=== PATIENT | female | born 2005 | race Caucasian/White ===

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

== ENCOUNTER 2024-03-03 17:53 | Emergency (ER) | payer SELFPAY ==
[2024-03-03 17:59] VITALS: BP 122/84; PULSE 104; RESP 18; TEMP 36.7; O2SAT 100
--- NOTE | 2024-03-03 18:06 | ED_ITS ---
HPI - Female Genitourinary General Chief complaint: Abdominal Pain Stated complaint: rt. sided abdominal pain Time Seen by Provider: 03/03/24 18:00 Source: patient Mode of arrival: ambulatory Limitations: no limitations History of Present Illness HPI Narrative: 19-year-old female presents to the ED with a 5 day history of -- dysuria. No hematuria. -- right-sided abdominal pain. No radiation of the pain. No nausea/ vomiting. No exacerbating or relieving factors. Pain is intermittent. No fever or chills MD elicited complaint: dysuria and UTI Onset (ago): day(s) ( 5 days) Location of symptoms: flank Severity: moderate Female Urogenital Radiation: Non-Radiating Quality of pain: aching Consistency: intermittent Vaginal discharge: none Vaginal bleeding: none Urinary symptoms: Dysuria Exacerbating factors: none Relieving factors: none Associated symptoms: denies other symptoms Treatment prior to arrival: none Date of Last Menstrual Period: 02/11/24 Related Data Home Medications ?Medication ?Instructions ?Recorded ?Confirmed ?Last Taken ?Type etonogestrel 68 mg subdermal 1 implant subdermal ONCE 04/05/20 11/20/23 08/23/20 History implant (Nexplanon) Allergies Allergy/AdvReac Type Severity Reaction Status Date / Time No Known Allergies Allergy Verified 11/20/23 08:38 Review of Systems 2 Review of Systems: All systems reviewed & are unremarkable except as noted in HPI and below Constitutional: Constitutional: Reports as per HPI and Reports no additional constitutional complaints Eyes: Eyes: Reports as per HPI and Reports no additional eye complaints ENT: Reports system reviewed and no additional complaints, except as documented and Reports as per HPI Cardiovascular: Cardiovascular: Reports as per HPI and Reports no additional cardiovascular complaints Respiratory: Respiratory: Reports as per HPI and Reports no additional respiratory complaints Gastrointestinal: Gastrointestinal: Reports as per HPI and Reports no additional gastrointestinal complaints Genitourinary: Genitourinary: Reports no additional female genitourinary complaints and Reports flank pain Comments: right flank pain Musculoskeletal: Musculoskeletal: Reports no additional musculoskeletal complaints and Reports as per HPI Integumentary/Breasts: Skin/Breast: Reports system reviewed and no additional complaints, except as docu and Reports as per HPI Neurologic: Reports system reviewed and no additional complaints, except as documented and Reports as per HPI Psychiatric: Psychiatric: Reports no additional psychiatric complaints and Reports as per HPI Endocrine: Endocrine: Reports no additional endocrine complaints and Reports as per HPI Hematologic/Lymphatic: Hematologic/Lymphatic: Reports no additional hematologic/lymphatic complaints and Reports as per HPI [facility] Past Medical History Medical History HSV infection History of chlamydia Surgical History Surgical History History of eye surgery Family History Family History Grandparent Diabetes mellitus Hypertension Cerebrovascular accident Family history of throat cancer Social History Social History Smoking status: Current every day smoker (vapes and THC dabs) Tobacco type: e-cigarettes/vaping Alcohol intake: never Substance use: current Substance use type: marijuana Gender identity (if verbalized by the patient): Female Exam 2 Const: General: healthy appearing Nutritional Appearance: well nourished Orientation/consciousness: patient oriented x3 Limitations: no limitations HENMT: Head: normal to inspection Ears: external ears normal F prince/Nose/Sinus: Normal external nose present Face and sinus: normal facial exam Mouth: Yes Normal oral and palatal mucosa present Throat: posterior oropharynx normal Eyes: Conjunctivae: conjunctivae normal Pupils: Equal, round and reactive pupils present EOM: EOMs intact bilaterally Direct Ophthalmoscopy: no photophobia Neck: Neck: normal visual inspection, no lymphadenopathy and no meningeal signs Chest: Chest palpation & inspection: normal inspection of the chest Resp: Effort & Inspection: normal respiratory effort Auscultation: clear to auscultation bilaterally Cardio: Rate: regular rate Rhythm: regular rhythm GI: GI Palp: Yes Soft to palpation Other: tenderness right flank and right lower quadrant. No tenderness in the CVA angle. No rigidity / rebound. : General: Yes no CVA tenderness Back/Spine/Pelvis: Back: no CVA tenderness Skin: General skin exam: normal color Rashes: no rashes Wounds: no wounds Neuro: General: patient oriented x3, moves all extremities, no meningeal signs, no focal motor deficits and CN's II-XI intact bilaterally Cranial nerves: Yes Nystagmus not present Speech: normal speech Gait exam (Neuro): Normal gait present Extrem: General: normal to inspection, no clubbing, cyanosis or edema and no pedal edema Psych: Appearance: grossly normal Mental Status: mental status grossly normal Affect: normal affect Attitude: cooperative Course Course Emergency Course: Dysuria/right flank pain/abdominal pain-- Urine tested positive for Trichomonas. UA had 4 white cells per high-power field with a Positive leukocyte Estrace. Patient had a normal white cell count with normal electrolytes. would treat with metronidazole 500 b.i.d. for 7 days. Advised the patient to get a repeat test to look for irrigation. Also advised the patient that her partner needs treatment. Vital Signs Vital signs: Vital Signs Temperature 36.7 C 03/03/24 17:59 Pulse Rate 104 H 03/03/24 17:59 Respiratory Rate 18 03/03/24 17:59 Blood Pressure 122/84 03/03/24 17:59 Pulse Oximetry 100 03/03/24 17:59 Oxygen Delivery Room Air 03/03/24 17:59 Temperature 36.7 C 03/03/24 17:59 Pulse Rate 104 H 03/03/24 17:59 Respiratory Rate 18 03/03/24 17:59 Blood Pressure 122/84 03/03/24 17:59 Pulse Oximetry 100 03/03/24 17:59 Oxygen Delivery Room Air 03/03/24 17:59 MDM - Female Genitourinary Lab Data 03/03/24 18:25 03/03/24 18:25 Labs: Lab Results 03/03/24 03/03/24 Range/Units 18:05 18:25 WBC 4.9 (4.8-10.8) K/mm3 RBC 4.00 L (4.20-5.40) M/mm3 Hgb 12.0 (12.0-15.0) g/dL Hct 37.0 (35.0-49.0) % MCV 92.5 (78.0-102.0) fL MCH 30.0 (27.0-31.0) pg MCHC 32.4 (32-36) g/dL RDW 13.6 (11.6-14.4) % Plt Count 240 (150-420) K/mm3 MPV 10.7 (9.2-11.8) fl Immature Gran % (Auto) 0.2 H (0.0-0.0) % Neut % (Auto) 67.2 (50.0-70.0) % Lymph % (Auto) 20.1 (18.0-42.0) % [place] % (Auto) 10.1 (2.0-11.0) % Eos % (Auto) 1.8 (1.0-6.0) % Baso % (Auto) 0.6 (0.0-1.0) % Lymph # (Auto) 0.98 L (1.10-4.50) K/mm3 [place] # (Auto) 0.49 (0.10-0.90) K/mm3 Eos # (Auto) 0.09 (0.02-0.50) K/mm3 Baso # (Auto) 0.03 (0.00-0.10) K/mm3 Abs Immat Gran (auto) 0.01 H (0.00-0.00) K/mm3 Absolute Neuts (auto) 3.27 (1.70-7.20) K/mm3 Absolute Nucleated RBC 0.00 (0.00-0.00) K/mm3 Nucleated RBC % 0.0 (0-0.0) % Sodium 139 (136-145) mmol/L Potassium 3.5 (3.5-5.1) mmol/L Chloride 101 (98-108) mmol/L Carbon Dioxide 27 (21-32) mmol/L Anion Gap 11 (4-12) mmol/L BUN 7 (7-18) mg/dL Creatinine 0.81 (0.55-1.02) mg/dL Estim Creat Clear Calc 96 ml/min Estimated GFR > 60 (59 - ) Glucose 84 (70-99) mg/dL Calculated Osmolality 285 (285-295) mOsm/kg Lactic Acid 0.8 (0.4-2.0) mmol/L Calcium 9.0 (8.5-10.1) mg/dL Total Bilirubin 0.3 (0.00-1.00) mg/dL AST 18 (15-37) U/L ALT 26 (14-59) U/L Alkaline Phosphatase 85 (46-116) U/L Total Protein 7.5 (6.4-8.2) g/dL Albumin 4.0 (3.4-5.0) g/dL Lipase 30 (16-77) U/L Urine Color Light yellow (Yellow) Urine Appearance Clear (Clear) Urine pH 6.5 (5.0-8.0) Ur Specific Ronda 1.015 (1.010-1.020) Urine Protein Negative (Negative) Urine Glucose (UA) Negative (Negative) Urine Ketones Negative (Negative) Ur Blood (Man) Trace-intact H (Negative) Urine Nitrate Negative (Negative) Urine Bilirubin Negative (Negative) Urine Urobilinogen 0.2 (0.2-1.0) mg/dL Leukocyte Esterase Rfl 1+ H (Negative) JULES/UL Urine RBC 0-2 (0-2) /hpf Urine WBC 4-6 H (0-3) /hpf Ur Squamous Epith Cells Moderate H (Few) /hpf Urine Bacteria 1+ H (None) /hpf Urine Mucus Few H /lpf Urine Trichomonas Present H (None) /hpf Urine Test Negative Discharge Plan Discharge Clinical Impression: Chlamydia infection Patient Disposition: Home, Self-Care Condition: Stable Instructions: Antibiotic Form, Chlamydia (ED) Patient Language: Persian Prescriptions: New metronidazole 500 mg tablet 500 mg PO Q12H Qty: 14 0RF No Action naproxen 500 mg tablet 500 mg PO BID PRN (Reason: pain) Qty: 14 0RF cyclobenzaprine 5 mg tablet 5 mg PO TID Qty: 20 0RF Nexplanon 68 mg implant 1 implant subdermal ONCE Rx Instructions: as a single dose Follow-up/Referrals: Laron Chun MD [Primary Care Provider] - Time of Disposition: 19:16
[2024-03-03 18:11] LABS: Add Urine Microscopic? YES; Appearance Urine Clear (Clear); Bilirubin Urine Negative (Negative); Blood Urine Trace-intact (Negative); Color Urine Light Yellow (Yellow); Glucose Urine UA Negative (Negative); Ketones Urine Negative (Negative); Leukocyte Esterase Ur 1+ LEU/UL (Negative); Nitrate Urine Negative (Negative); Protein Urine Negative (Negative); Specific Grav Ur 1.015 (1.010-1.020); Urobilinogen Urine 0.2 mg/dL (0.2-1.0); pH Urine 6.5 (5.0-8.0)
[2024-03-03 18:18] LABS: Bacteria Urine 1+ /hpf; Mucus Urine Few /lpf; RBC Urine 0-2 /hpf (0-2); Squamous Epithelial Cell Urine Moderate /hpf (Few); Trichomonas Urine Present /hpf
[2024-03-03 18:19] LABS: Pregnancy On Board Control Positive; Urine Pregnancy Test Negative
[2024-03-03 18:30] LABS: Basophils Absolute Auto 0.03 K/mm3 (0.00-0.10); Basophils Percent Auto 0.6 % (0.0-1.0); Eosinophils Absolute Auto 0.09 K/mm3 (0.02-0.50); Eosinophils Percent Auto 1.8 % (1.0-6.0); Immature Granulocyte Absolute 0.01 K/mm3 (0.00-0.00); Immature Granulocyte Percent A 0.2 % (0.0-0.0); Lymphocytes Absolute Auto 0.98 K/mm3 (1.10-4.50); Lymphocytes Percent Auto 20.1 % (18.0-42.0); Mean Corpuscular HGB Conc 32.4 g/dL (32-36); Mean Corpuscular Volume 92.5 fL (78.0-102.0); Mean Platelet Volume 10.7 fl (9.2-11.8); Monocytes Absolute Auto 0.49 K/mm3 (0.10-0.90); Monocytes Percent Auto 10.1 % (2.0-11.0); Neutrophils Absolute Auto 3.27 K/mm3 (1.70-7.20); Neutrophils Percent Auto 67.2 % (50.0-70.0); Platelet Count Result 240 K/mm3 (150-420); Red Cell Distribution Width 13.6 % (11.6-14.4); White Blood Count 4.9 K/mm3 (4.8-10.8)
[2024-03-03 18:45] LABS: Alanine Aminotransferase 26 U/L (14-59); Alkaline Phosphatase 85 U/L (46-116); Anion Gap 11 mmol/L (4-12); Aspartate Amino Transferase 18 U/L (15-37); Bilirubin,Total 0.3 mg/dL (0.00-1.00); Blood Urea Nitrogen 7 mg/dL (7-18); Carbon Dioxide 27 mmol/L (21-32); Chloride 101 mmol/L (98-108); Estimated CRCL calculation 96 ml/min; Estimated Glomerular Filt Rate > 60; Glucose 84 mg/dL (70-99); Lipase 30 U/L (16-77); Osmolality Calculated 285 mOsm/kg (285-295); Potassium 3.5 mmol/L (3.5-5.1); Sodium 139 mmol/L (136-145); Total Protein 7.5 g/dL (6.4-8.2)
[2024-03-03 18:50] LABS: Lactic Acid Reflex 0.8 mmol/L (0.4-2.0)
--- NOTE | 2024-03-03 19:06 | PC.NURSE ---
REPORT TO WON HOLLAND
--- NOTE | 2024-03-03 19:17 | PC.NURSE ---
patient report received from WON Munoz for continuation of care on shift coordinator. ERP Dr. Ortiz at patient bedside at this time.
== END 2024-03-03 19:32 | disposition home or self-care (01) ==
PROVIDERS: Emergency Provider Internal Medicine Critical Care Medicine; PCP Family Medicine
DX: A74.9 Chlamydial infection, unspecified (principal); F17.290 Nicotine dependence, other tobacco product, uncomplicated
CPT/HCPCS: 36415; 80053; 81001; 81025; 83605; 83690; 85025; 99283

== ENCOUNTER 2024-05-22 15:36 | Emergency (ER) | payer OTHER, SELFPAY ==
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
[2024-05-22 15:36] VITALS: BP 134/74; PULSE 93; RESP 17; TEMP 37.2; O2SAT 100
--- OUTSIDE RECORDS SUMMARY | 2024-05-22 15:37 | XMS_ITS | Clinical Summary ---
Author Organization [facility] Address [address] [place] [address] Phone Care Team Providers Care Cotton Farmworker Name Role Phone Laron Mcmanus MD Primary Care Provider [phone] Allergies No known active allergies Medications No known medications Social History Tobacco Use Types Packs/Day Years Used Date Smoking Tobacco: Never Smokeless Tobacco: Never Tobacco Cessation:Counseling Given: Not Answered Alcohol Use Standard Drinks/Week Comments Never 0 (1 standard drink = 0.6 oz pur e alcohol) Comments No Sex and Gender Information Value Date Recorded Sex Assigned at Not on file Legal Sex Female 6:08 AM CDT Gender Identity Not on file Sexual Orientation Not on file Last Filed Vital Signs Vital Sign Reading Time Taken Comments Blood Pressure 127/60 10/28/2023 7:30 AM CDT Pulse 79 10/28/2023 7:30 AM CDT Temperature 36.3 C (97.4 F) 10/28/2023 7:30 AM CDT Respiratory Rate 16 10/28/2023 7:30 AM CDT Oxygen Saturation 100% 10/28/2023 7:30 AM CDT Inhaled Oxygen Concentration - - Weight 77.1 kg (170 lb) 10/28/2023 6:12 AM CDT Height 160 cm (5' 3 ) 10/28/2023 6:12 AM CDT Body Mass Index 30.11 10/28/2023 6:12 AM CDT Plan of Treatment Not on file Care Teams Cotton Farmworker Relationship Specialty Start Date End Date Laron Mcmanus MD [address] [place] [address] PCP - General Family Medicine 10/28/23
--- OUTSIDE RECORDS SUMMARY | 2024-05-22 15:37 | XMS_ITS | Clinical Summary ---
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 Gender Identity Not on file Sexual Orientation Not on file Last Filed Vital Signs Vital Sign Reading Time Taken Comments Blood Pressure 140/66 12/03/2021 10:03 PM CDT Pulse 96 12/03/2021 10:03 PM CDT Temperature 36.6 C (97.9 F) 12/03/2021 10:03 PM CDT Respiratory Rate 16 12/03/2021 10:03 PM CDT Oxygen Saturation 100% 12/03/2021 10:03 PM CDT Inhaled Oxygen Concentration - - Weight 72.6 kg (160 lb) 12/03/2021 10:03 PM CDT Height 160 cm (5' 3 ) 12/03/2021 10:03 PM CDT Body Mass Index 28.34 12/03/2021 10:03 PM CDT Plan of Treatment Health Maintenance Due Date Last Done Comments Annual Physical 01/03/2007 Meningococcal B Vaccine (1 of 2 - Standard) 2020 Hepatitis C 01/03/2022 COVID-19 Vaccine (3 - season) 2023 06/13/2021, 05/19/2021 DTaP, Tdap and Td Vaccines (7 - Td or Tdap) 05/15/2025 05/16/2015, 07/25/2009, 04/05/2005, Additional history exists Hepatitis B Vaccines Completed 2004, 2004, 2004 Pneumococcal Vaccine: Pediatrics (0 to 5 Years) and At-Risk Patients (6 to 64 Years) Aged Out 04/05/2005, 2004, 2004, Additional history exists No longer eligible based on patient's age to complete this topic HPV Vaccines Completed 11/18/2017, 05/16/2015 Meningococcal Vaccine Completed 10/10/2021, 016 RSV Immunizations Under 20 Months Aged Out No longer eligible based on patient's age to complete this topic Insurance [employer] MEDICAID Care Teams Roughener Relationship Specialty Start Date End Date None, Provider, MD PCP - General UNKNOWN PHYSICIAN SPECIALTY 12/03/21
--- OUTSIDE RECORDS SUMMARY | 2024-05-22 15:37 | XMS_ITS | Encounter Summary ---
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
--- NOTE | 2024-05-22 15:40 | PC.NURSE ---
Per ERP, Patient does not need a C-Collar at this time.
--- NOTE | 2024-05-22 15:49 | PC.NURSE ---
Patient ambulatory to and from bathroom with steady gait.
[2024-05-22] MEDS: ACETAMINOPHEN 325 MG TABLET 650 MG PO (16:00)
--- NOTE | 2024-05-22 16:02 | PC.NURSE ---
Patient refuses all needle sticks, ERP made aware patient refuses IV and blood draw.
[2024-05-22 16:12] LABS: Add Urine Microscopic? YES; Bilirubin Urine Negative (Negative); Blood Urine 2+ (Negative); Color Urine Light Yellow (Yellow); Glucose Urine UA Negative (Negative); Ketones Urine Trace (Negative); Leukocyte Esterase Ur 2+ LEU/UL (Negative); Nitrate Urine Negative (Negative); Protein Urine Trace (Negative); Specific Grav Ur 1.025 (1.010-1.020); Urobilinogen Urine 0.2 mg/dL (0.2-1.0); pH Urine 5.5 (5.0-8.0)
[2024-05-22 16:17] LABS: Appearance Urine Cloudy (Clear)
[2024-05-22 16:23] LABS: RBC Urine None seen /hpf (0-2)
[2024-05-22 16:24] LABS: Bacteria Urine 1+ /hpf; Mucus Urine Heavy /lpf; Squamous Epithelial Cell Urine Moderate /hpf (Few); WBC Clumps Urine Present /hpf; WBC Urine >75 /hpf (0-3)
[2024-05-22 16:25] LABS: Pregnancy On Board Control Positive; Urine Pregnancy Test Negative
[2024-05-22 16:30] VITALS: BP 128/85; PULSE 85; RESP 17; O2SAT 99
[2024-05-22 17:30] VITALS: BP 125/80; PULSE 75; RESP 17; O2SAT 99
[2024-05-22 18:40] VITALS: BP 117/52; PULSE 64; RESP 16; TEMP 36.7; O2SAT 100
[2024-05-22] MEDS: SULFAMETHOXAZOLE/TRIMETHOPRIM 800/160 MG DS TABLET 1 TAB PO (18:45)
[2024-05-22 18:47] VITALS: BP 117/52; PULSE 64; RESP 16; TEMP 36.7; O2SAT 98
== END 2024-05-22 18:47 | disposition home or self-care (01) ==
PROVIDERS: Emergency Provider Emergency Medicine; PCP Family Medicine
DX: S60.512A Abrasion of left hand, initial encounter (principal); S60.511A Abrasion of right hand, initial encounter; M54.50 Low back pain, unspecified; N39.0 Urinary tract infection, site not specified; F17.290 Nicotine dependence, other tobacco product, uncomplicated; V29.99XA Rider (driver) (passenger) of other motorcycle injured in unspecified traffic accident, initial encounter
CPT/HCPCS: 71250; 74176; 81001; 81025; 99284; A9270

== ENCOUNTER 2024-09-05 15:15 | Emergency (ER) | payer SELFPAY ==
[2024-09-05 15:15] VITALS: BP 123/78; PULSE 64; RESP 14; TEMP 36.7; O2SAT 100
--- OUTSIDE RECORDS SUMMARY | 2024-09-05 15:21 | XMS_ITS | Clinical Summary ---
Author Organization [facility] Address [address] [place] [address] Phone Care Team Providers Care Surgical Supervisor Name Role Phone Laron Mcmanus MD Primary Care Provider [phone] Allergies No known active allergies Medications No [...] 6:12 AM CDT Height 160 cm (5' 3) 10/28/2023 6:12 AM CDT Body Mass Index 30.11 10/28/2023 6:12 AM CDT Plan of Treatment Not on file Care Teams Surgical Supervisor Relationship Specialty Start Date End Date Laron Mcmanus MD [address] [place] [address] PCP - General Family Medicine 10/28/23
--- OUTSIDE RECORDS SUMMARY | 2024-09-05 15:21 | XMS_ITS | Encounter Summary ---
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
--- OUTSIDE RECORDS SUMMARY | 2024-09-05 15:21 | XMS_ITS | Clinical Summary ---
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 Gender Identity Not on file Sexual Orientation [...] 10:03 PM CDT Height 160 cm (5' 3) 12/03/2021 10:03 PM CDT Body Mass Index [...] 5 Years) and At-Risk Patients (6 to 49 Years) Aged Out 04/05/2005, 2004, 2004, Additional history exists No longer eligible based on patient's age to complete this topic HPV Vaccines Completed 11/18/2017, 05/16/2015 Meningococcal Vaccine Completed 10/10/2021, 016 RSV Immunizations Under 20 Months Aged Out No longer eligible based on patient's age to complete this topic Insurance [employer] MEDICAID Care Teams Nuts And Bolts Assembler Relationship Specialty Start Date End Date None, Provider, MD PCP - General UNKNOWN PHYSICIAN SPECIALTY 12/03/21
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
--- OUTSIDE RECORDS SUMMARY | 2024-09-05 15:45 | XMS_ITS | Clinical Summary ---
Author Organization [facility] Address [address] [place] [address] Phone Care Team Providers Care District Gauger Name Role Phone Laron Mcmanus MD Primary Care Provider [phone] Allergies No known active allergies Medications No [...] of Treatment Not on file Care Teams District Gauger Relationship Specialty Start Date End Date Laron Mcmanus MD [address] [place] [address] PCP - General Family Medicine 10/28/23
--- OUTSIDE RECORDS SUMMARY | 2024-09-05 15:45 | XMS_ITS | Clinical Summary ---
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
--- OUTSIDE RECORDS SUMMARY | 2024-09-05 15:45 | XMS_ITS | Encounter Summary ---
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
[2024-09-05] MEDS: KETOROLAC (*BKC) 60 MG/2 ML VIAL IM (15:50)
== END 2024-09-05 16:00 | disposition home or self-care (01) ==
LOC: CHSED 15:44
PROVIDERS: Emergency Provider Emergency Medicine; PCP Family Medicine
DX: R68.84 Jaw pain (principal); F17.290 Nicotine dependence, other tobacco product, uncomplicated
CPT/HCPCS: 96372; 99283; A9270; J1885

== ENCOUNTER 2024-09-26 16:33 | Emergency (ER) | payer SELFPAY ==
[2024-09-26 16:35] VITALS: BP 132/73; PULSE 94; RESP 20; TEMP 36.7; O2SAT 98
--- OUTSIDE RECORDS SUMMARY | 2024-09-26 16:36 | XMS_ITS | Clinical Summary ---
Author Organization [facility] Address [address] [place] [address] Phone Care Team Providers Care Chemical Plant Technical Director Name Role Phone Laron Mcmanus MD Primary Care Provider [phone] Allergies No known active allergies Medications No [...] of Treatment Not on file Care Teams Chemical Plant Technical Director Relationship Specialty Start Date End Date Laron Mcmanus MD [address] [place] [address] PCP - General Family Medicine 10/28/23
--- OUTSIDE RECORDS SUMMARY | 2024-09-26 16:36 | XMS_ITS | Encounter Summary ---
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
--- OUTSIDE RECORDS SUMMARY | 2024-09-26 16:36 | XMS_ITS | Clinical Summary ---
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
--- NOTE | 2024-09-26 16:41 | ED_ITS ---
HPI - General Adult General Chief complaint: Dental/Oral Stated complaint: toothache Time Seen by Provider: 09/26/24 16:37 History of Present Illness HPI narrative: Kellen is a 19F with a PMH of poor dentition that presented to the ED with pain in her right lower molars for 2 days. She has infected teeth but cannot get into the dentist until the end of the month. No dyspnea, fevers, dysphagia or systemic symptoms. Related Data Allergies Allergy/AdvReac Type Severity Reaction Status Date / Time No Known Allergies Allergy Verified 09/26/24 16:39 Review of Systems Review of Systems: All systems reviewed & are unremarkable except as noted in HPI and below PMFSH Past Medical History Medical History HSV infection History of chlamydia Surgical History Surgical History History of eye surgery Family History Family History Grandparent Diabetes mellitus Hypertension Cerebrovascular accident Family history of throat cancer Social History Social History Smoking status: Current every day smoker (vapes and THC dabs) Tobacco type: e-cigarettes/vaping Alcohol intake: never Substance use: current Substance use type: marijuana Gender identity (if verbalized by the patient): Female Exam Const: General: cooperative, healthy appearing, comfortable, no acute distress, well developed, alert, awake and Physically active Orientation/consciousness: oriented to person, oriented to place and oriented to time HENMT: Head: normal to inspection, normocephalic and atraumatic Ears: hearing grossly normal bilaterally and external ears normal Face/Nose/Sinus: Normal external nose present Other: right lower molars are cracked with erythematous base and very TTP Eyes: General: appearance normal, both eyes and all related structures Periorbital: periorbital findings normal Sclera: sclerae normal Pupils: Equal, round and reactive pupils present Neck: Neck: normal visual inspection Chest: Chest palpation & inspection: normal inspection of the chest Resp: Effort & Inspection: normal respiratory effort, able to speak in complete sentences and no respiratory distress Cardio: Jugular venous distension: no JVD Skin: General skin exam: normal color and no rashes or lesions noted Neuro: General: oriented to person, oriented to place and oriented to time Cranial nerves: Yes Equal, round and reactive pupils present Extrem: General: normal to inspection Course Vital Signs Vital signs: Vital Signs Temperature 98.1 F 09/26/24 16:35 Pulse Rate 94 09/26/24 16:35 Respiratory Rate 20 09/26/24 16:35 Blood Pressure 132/73 09/26/24 16:35 Pulse Oximetry 98 09/26/24 16:35 Oxygen Delivery Room Air 09/26/24 16:35 Temperature 98.1 F 09/26/24 16:35 Pulse Rate 94 09/26/24 16:35 Respiratory Rate 20 09/26/24 16:35 Blood Pressure 132/73 09/26/24 16:35 Pulse Oximetry 98 09/26/24 16:35 Oxygen Delivery Room Air 09/26/24 16:35 Medical Decision Making Vital Signs Vital Signs: Vital Signs Temperature 98.1 F 09/26/24 16:35 Pulse Rate 94 09/26/24 16:35 Respiratory Rate 20 09/26/24 16:35 Blood Pressure 132/73 09/26/24 16:35 Pulse Oximetry 98 09/26/24 16:35 Oxygen Delivery Room Air 09/26/24 16:35 Temperature 98.1 F 09/26/24 16:35 Pulse Rate 94 09/26/24 16:35 Respiratory Rate 20 09/26/24 16:35 Blood Pressure 132/73 09/26/24 16:35 Pulse Oximetry 98 09/26/24 16:35 Oxygen Delivery Room Air 09/26/24 16:35 Discharge Plan Discharge Clinical Impression: Dental infection Patient Disposition: Home Condition: Stable Instructions: Antibiotic Form Patient Language: Cook Islander Prescriptions: New clindamycin HCl [Cleocin HCl] 300 mg capsule 300 mg PO Q6H Qty: 20 0RF Follow-up/Referrals: Laron Chun MD [Primary Care Provider] - Stand Alone Forms: Work/School Release IP
[2024-09-26] MEDS: KETOROLAC 30 MG/ML VIAL (*BKC) IM (17:00)
[2024-09-26] MEDS: CLINDAMYCIN HCL 150 MG CAP 450 MG PO (17:00)
--- OUTSIDE RECORDS SUMMARY | 2024-09-26 17:11 | XMS_ITS | Encounter Summary ---
Author Organization 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
--- OUTSIDE RECORDS SUMMARY | 2024-09-26 17:11 | XMS_ITS | Clinical Summary ---
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
--- OUTSIDE RECORDS SUMMARY | 2024-09-26 17:11 | XMS_ITS | Clinical Summary ---
Author Organization [facility] Address [address] [place] [address] Phone Care Team Providers Care Wallcovering Texturer Name Role Phone Laron Mcmanus MD Primary Care Provider [phone] Allergies No known active allergies Medications No [...] of Treatment Not on file Care Teams Wallcovering Texturer Relationship Specialty Start Date End Date Laron Mcmanus MD [address] [place] [address] PCP - General Family Medicine 10/28/23
== END 2024-09-26 17:21 | disposition home or self-care (01) ==
PROVIDERS: Emergency Provider Family Medicine; PCP Family Medicine
DX: K04.7 Periapical abscess without sinus (principal); F17.290 Nicotine dependence, other tobacco product, uncomplicated
CPT/HCPCS: 96372; 99283; J1885

== ENCOUNTER 2024-10-09 19:56 | Emergency (ER) | payer SELFPAY ==
--- OUTSIDE RECORDS SUMMARY | 2024-10-09 19:58 | XMS_ITS | Clinical Summary ---
Author Organization [facility] Address [address] [place] [address] Phone Care Team Providers Care Printer Assistant Name Role Phone Laron Mcmanus MD Primary Care Provider [phone] Allergies No known active allergies Medications No [...] of Treatment Not on file Care Teams Printer Assistant Relationship Specialty Start Date End Date Laron Mcmanus MD [address] [place] [address] PCP - General Family Medicine 10/28/23
[2024-10-09 20:00] VITALS: BP 136/85; PULSE 86; RESP 22; TEMP 37; O2SAT 96
[2024-10-09] MEDS: LIDOCAINE 1% LOCAL INJ 10 ML VIAL INFILTRATE (20:18)
--- OUTSIDE RECORDS SUMMARY | 2024-10-09 20:33 | XMS_ITS | Clinical Summary ---
Author Organization [facility] Address [address] [place] [address] Phone Care Team Providers Care Leather Lacer Name Role Phone Laron Mcmanus MD Primary Care Provider [phone] Allergies No known active allergies Medications No [...] of Treatment Not on file Care Teams Leather Lacer Relationship Specialty Start Date End Date Laron Mcmanus MD [address] [place] [address] PCP - General Family Medicine 10/28/23
--- NOTE | 2024-10-09 20:58 | ED.LOWEXIN ---
HPI - Extremity Injury (Lower) General Chief Complaint: Extremity Injury, Lower Stated Complaint: cut on foot Time Seen by Provider: 10/09/24 20:06 Source: patient and family Limitations: no limitations History of Present Illness HPI Narrative: patient is a 19-year-old female who presents after she was standing on a glass table and cut her right medial foot proximally 2cm gaping area currently no bleeding no numbness or tingling no other injuries noted. complaint: foot injury Onset (ago): hour(s) Place: home Severity: mild Severity scale (1-10): 4 Relieving factors: nothing Related Data Home Medications ?Medication ?Instructions ?Recorded ?Confirmed ?Last Taken ?Type No Home Medications 10/09/24 10/09/24 Unknown History Allergies Allergy/AdvReac Type Severity Reaction Status Date / Time No Known Allergies Allergy Verified 10/09/24 20:09 Review of Systems Review of Systems: All systems reviewed & are unremarkable except as noted in HPI and below PMFSH Past Medical History Medical History HSV infection History of chlamydia Surgical History Surgical History History of eye surgery Family History Family History Grandparent Diabetes mellitus Hypertension Cerebrovascular accident Family history of throat cancer Social History Social History Smoking status: Current every day smoker (vapes and THC dabs) Tobacco type: e-cigarettes/vaping Alcohol intake: never Substance use: current Substance use type: marijuana Gender identity (if verbalized by the patient): Female Exam Const: General: healthy appearing and no acute distress Nutritional Appearance: well nourished Orientation/consciousness: patient oriented x3 Limitations: no limitations HENMT: Head: normal to inspection Eyes: Conjunctivae: conjunctivae normal Neck: Neck: normal visual inspection Chest: Chest palpation & inspection: normal inspection of the chest Resp: Effort & Inspection: normal respiratory effort Auscultation: clear to auscultation bilaterally Cardio: Rate: regular rate GI: GI Palp: Yes Soft to palpation Auscultation: normal bowel sounds : General: Yes bladder normal to palpation Urinary Catheter: Urinary Catheter: patent and draining Skin: Other: Of medial right distal foot laceration approximately 2cm in length gaping Neuro: General: patient oriented x3, moves all extremities and no meningeal signs Extrem: General: normal to inspection Course Course Emergency Course: area was cleaned and debrided and lidocaine was administered for topical anesthetic and 6 sutures placed patient tolerated procedure well updated with her tetanus Vital Signs Vital signs: Vital Signs Temperature 37.0 C 10/09/24 20:00 Pulse Rate 86 10/09/24 20:00 Respiratory Rate 22 H 10/09/24 20:00 Blood Pressure 136/85 10/09/24 20:00 Pulse Oximetry 96 10/09/24 20:00 Oxygen Delivery Room Air 10/09/24 20:00 Temperature 37.0 C 10/09/24 20:00 Pulse Rate 86 10/09/24 20:00 Respiratory Rate 22 H 10/09/24 20:00 Blood Pressure 136/85 10/09/24 20:00 Pulse Oximetry 96 10/09/24 20:00 Oxygen Delivery Room Air 10/09/24 20:00 Procedures Laceration Laceration 1: Date: 10/09/24 Time: 21:00 Site: lower extremity Side (If applicable): right Size (cm): 2 Description: linear Depth: simple, single layer Local Anesthetic: lidocaine 1% Pre-repair: wound explored, irrigated and irrigated extensively ====== Skin Level ====== Skin layer closed with: vicryl Size (cm): 4-0 Number of sutures: 6 Technique: simple, interrupted ====== Subcutaneous Layer ====== ====== Muscle Layer ====== ====== Tendon Layer ====== Critical Care Time Critical Care Time Critical Care Time: No Discharge Plan Discharge Clinical Impression: Laceration Patient Disposition: Home Condition: Stable Instructions: Antibiotic Form, Laceration (ED) Additional Instructions: advised patient to take Motrin as needed and to follow with primary in 8 days for suture removal. Patient Language: Panamanian Prescriptions: No Action No Home Medications Follow-up/Referrals: Laron Chun MD [Primary Care Provider, Internal Medicine] Time of Disposition: 21:02
[2024-10-09] MEDS: TETANUS,DIPHTHERIA,AC PERTUSSIS ADULT 0.5 ML (ADACEL) IM (21:03)
[2024-10-09 21:14] VITALS: BP 108/55; PULSE 72; RESP 20; TEMP 37.4; O2SAT 98
== END 2024-10-09 21:23 | disposition home or self-care (01) ==
PROVIDERS: Emergency Provider Emergency Medicine; PCP Family Medicine
DX: S91.311A Laceration without foreign body, right foot, initial encounter (principal); F17.290 Nicotine dependence, other tobacco product, uncomplicated; Z23 Encounter for immunization; W25.XXXA Contact with sharp glass, initial encounter
CPT/HCPCS: 12001; 90471; 90715; 99282; J2003

== ENCOUNTER 2024-10-18 16:18 | Emergency (ER) | payer SELFPAY ==
[2024-10-18 16:20] VITALS: BP 128/87; PULSE 118; RESP 18; TEMP 37.5; O2SAT 98
--- OUTSIDE RECORDS SUMMARY | 2024-10-18 16:20 | XMS_ITS | Encounter Summary ---
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
--- OUTSIDE RECORDS SUMMARY | 2024-10-18 16:20 | XMS_ITS | Clinical Summary ---
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
--- OUTSIDE RECORDS SUMMARY | 2024-10-18 16:20 | XMS_ITS | Clinical Summary ---
Author Organization [facility] Address [address] [place] [address] Phone Care Team Providers Care Casting Operator Helper Name Role Phone Laron Mcmanus MD Primary Care Provider [phone] Allergies No known active allergies Medications No [...] of Treatment Not on file Care Teams Casting Operator Helper Relationship Specialty Start Date End Date Laron Mcmanus MD [address] [place] [address] PCP - General Family Medicine 10/28/23
--- NOTE | 2024-10-18 16:42 | ED.WOUNDLAC ---
HPI - Wound/Laceration General Chief Complaint: Wound/Laceration Stated Complaint: stitches removed Time Seen by Provider: 10/18/24 16:42 Source: patient Mode of arrival: ambulatory Limitations: no limitations History of Present Illness HPI narrative: Patient is a 19-year-old female with a right great toe plantar surface laceration repair with stitches in place x6. Suture removal today. Also some localized redness and pus at times. Tetanus up-to-date. Work note to return to work. Onset (ago): week(s) (One) Extremity Location: Right: foot (Plantar surface great toe) Place: home Patient tetanus UTD: Yes Context: accidental Associated symptoms: none Treatments prior to arrival: other (Suture closed x6) Related Data Allergies Allergy/AdvReac Type Severity Reaction Status Date / Time No Known Allergies Allergy Verified 10/18/24 16:29 Review of Systems Review of Systems: All systems reviewed & are unremarkable except as noted in HPI and below Constitutional: Constitutional: Reports no additional constitutional complaints Eyes: Eyes: Reports no additional eye complaints ENT: Reports system reviewed and no additional complaints, except as documented Cardiovascular: Cardiovascular: Reports no additional cardiovascular complaints Respiratory: Respiratory: Reports no additional respiratory complaints Gastrointestinal: Gastrointestinal: Reports no additional gastrointestinal complaints Genitourinary: Genitourinary: Reports no additional female genitourinary complaints Musculoskeletal: Musculoskeletal: Reports no additional musculoskeletal complaints Integumentary/Breasts: Skin/Breast: Reports system reviewed and no additional complaints, except as docu Neurologic: Reports system reviewed and no additional complaints, except as documented Psychiatric: Psychiatric: Reports no additional psychiatric complaints Endocrine: Endocrine: Reports no additional endocrine complaints Hematologic/Lymphatic: Hematologic/Lymphatic: Reports no additional hematologic/lymphatic complaints Allergic/Immunologic: Allergic/Immunologic: Reports no additional allergic/immunologic complaints [facility] Past Medical History Medical History HSV infection History of chlamydia Surgical History Surgical History History of eye surgery Family History Family History Grandparent Diabetes mellitus Hypertension Cerebrovascular accident Family history of throat cancer Social History Social History Smoking status: Current every day smoker (vapes and THC dabs) Tobacco type: e-cigarettes/vaping Alcohol intake: never Substance use: current Substance use type: marijuana Gender identity (if verbalized by the patient): Female Exam Const: General: healthy appearing Nutritional Appearance: well nourished Orientation/consciousness: patient oriented x3 HENMT: Head: normal to inspection Ears: external ears normal Face/Nose/Sinus: Normal external nose present Eyes: Conjunctivae: conjunctivae normal Pupils: Equal, round and reactive pupils present EOM: EOMs intact bilaterally Neck: Neck: normal visual inspection Chest: Chest palpation & inspection: normal inspection of the chest Resp: Effort & Inspection: normal respiratory effort and not labored Auscultation: clear to auscultation bilaterally and no crackles Cardio: Rate: regular rate Rhythm: regular rhythm Heart sounds: no murmurs GI: Inspection: non-distended GI Palp: Yes Soft to palpation and No Tenderness to palpation present (GI) Auscultation: normal bowel sounds Back/Spine/Pelvis: Back: no CVA tenderness Skin: General skin exam: normal color Rashes: no rashes Wounds: no wounds Neuro: General: patient oriented x3, moves all extremities and no meningeal signs Cranial nerves: Yes Nystagmus not present Extrem: General: abnormal to inspection Other: Right great toe plantar surface laceration with localized erythema and slight pus and [address] for removal today Psych: Mental Status: mental status grossly normal Affect: normal affect Attitude: cooperative Course Vital Signs Vital signs: Vital Signs Temperature 37.5 C 10/18/24 16:20 Pulse Rate 118 H 10/18/24 16:20 Respiratory Rate 18 10/18/24 16:20 Blood Pressure 128/87 10/18/24 16:20 Pulse Oximetry 98 10/18/24 16:20 Oxygen Delivery Room Air 10/18/24 16:20 Temperature 37.5 C 10/18/24 16:20 Pulse Rate 118 H 10/18/24 16:20 Respiratory Rate 18 10/18/24 16:20 Blood Pressure 128/87 10/18/24 16:20 Pulse Oximetry 98 10/18/24 16:20 Oxygen Delivery Room Air 10/18/24 16:20 MDM - Wound/Laceration MDM Narrative Medical decision making narrative: Patient is a 19-year-old female with a right great toe plantar surface laceration with repair needing 6 times suture removal. Suture removal today. Tetanus up-to-date. Work note. Antibiotics to pharmacy. Discharge Plan Discharge Clinical Impression: Laceration of foot Qualifiers: Encounter type: initial encounter Laterality: right Qualified Code(s): S91.311A - Laceration without foreign body, right foot, initial encounter Patient Disposition: Home Condition: Stable Instructions: Antibiotic Form, Laceration (ED) Patient Language: Slovenian Prescriptions: New cephalexin 500 mg capsule 500 mg PO BID 7 Days Qty: 14 0RF Follow-up/Referrals: UNKNOWN,DOCTOR [Primary Care Provider] Stand Alone Forms: Work/School Release IP Time of Disposition: 16:51
--- OUTSIDE RECORDS SUMMARY | 2024-10-18 16:54 | XMS_ITS | Clinical Summary ---
Author Organization [facility] Address [address] [place] [address] Phone Care Team Providers Care Career Technology Teacher Name Role Phone Laron Mcmanus MD Primary Care Provider [phone] Allergies No known active allergies Medications No [...] of Treatment Not on file Care Teams Career Technology Teacher Relationship Specialty Start Date End Date Laron Mcmanus MD [address] [place] [address] PCP - General Family Medicine 10/28/23
--- OUTSIDE RECORDS SUMMARY | 2024-10-18 16:54 | XMS_ITS | Encounter Summary ---
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
--- OUTSIDE RECORDS SUMMARY | 2024-10-18 16:54 | XMS_ITS | Clinical Summary ---
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
== END 2024-10-18 16:58 | disposition home or self-care (01) ==
LOC: CHSED 16:53
PROVIDERS: Emergency Provider Emergency Medicine; Referring Provider Family Medicine
DX: Z48.02 Encounter for removal of sutures (principal); F17.290 Nicotine dependence, other tobacco product, uncomplicated
CPT/HCPCS: 15853; 99283